=== PATIENT | male | born 1990 | race African-American/Black ===

== ENCOUNTER 2018-03-09 01:48 | Emergency (ER) | payer MEDICAID ==
[~2018-03-09] VITALS: Ht 188 cm; Wt 124.7 kg
[2018-03-09 03:06] VITALS: BP 149/81
[2018-03-09] MEDS ORDERED: cefTRIAXone SOD 1,000 MG VL IM ONE (03:30)
== END 2018-03-09 04:10 | disposition home or self-care (01) ==
LOC: ER 01:48
DX: S80.862A Insect bite (nonvenomous), left lower leg, initial encounter (principal); W57.XXXA Bitten or stung by nonvenomous insect and other nonvenomous arthropods, initial encounter; Y93.89 Activity, other specified; Y99.8 Other external cause status; Y92.89 Other specified places as the place of occurrence of the external cause
CPT/HCPCS: 96372; 99283; J0696